=== PATIENT | female | born 1970 | race American Indian/Alaskan Native ===

== ENCOUNTER 2016-03-29 09:12 | Emergency (ER) | payer BC, OTHER ==
[2016-03-29] MEDS ORDERED: ZOFRAN ONE (10:47)
[2016-03-29] MEDS ORDERED: MORPHINE IV ONE ×2 (11:05→14:18)
[2016-03-29] MEDS ORDERED: ZOFRAN IV ONE (11:05)
[2016-03-29 11:14] LABS: Basophils % (Auto) 0.6 % (0.0-1.8); Eosinophils % (Auto) 1.9 % (0.0-4.3); Hematocrit 37.3 % (30.3-42.9); Hemoglobin 12.6 gm/dl (10.1-14.3); Mean Corpuscular HGB Conc 34 % (30-34); Mean Corpuscular Hemoglobin 29 pg (28-32); Mean Corpuscular Volume 86 fl (79-97); Platelet Count 322 K/mm3 (140-440); Red Blood Count 4.33 M/mm3 (3.65-5.03); Red Cell Distribution Width 13.5 % (13.2-15.2); White Blood Count 8.7 K/mm3 (4.5-11.0)
[2016-03-29 11:29] LABS: Blood Urea Nitrogen 7 mg/dL (7-17); Calcium 9.5 mg/dL (8.4-10.2); Carbon Dioxide 24 mmol/L (22-30); Chloride 100.5 mmol/L (98-107); Glucose 97 mg/dL (65-100); Potassium 3.9 mmol/L (3.6-5.0); Sodium 138 mmol/L (137-145)
[2016-03-29 12:07] LABS: Anion Gap 17 mmol/L
[2016-03-29] MEDS ORDERED: NACL ONE (12:07)
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
[2016-03-29 14:28] LABS: Bacteria,Urine 1+ /HPF (Negative); Bilirubin,Urine NEG (Negative); Blood,Urine NEG (Negative); Ketones,Urine NEG (Negative); Leukocyte Esterase,Urine MOD (Negative); Nitrite,Urine NEG (Negative); Protein,Urine <15 mg/dL mg/dL (Negative); RBC,Urine < 1.0 /HPF (0.0-6.0); Urobilinogen,Urine < 2.0 mg/dL (<2.0)
[2016-03-29 15:35] VITALS: BP 128/79
== END 2016-03-29 15:34 | disposition home or self-care (01) ==
LOC: ED 09:12
DX: R10.30 Lower abdominal pain, unspecified (principal); I10 Essential (primary) hypertension; G89.29 Other chronic pain; Z90.710 Acquired absence of both cervix and uterus; V89.2XXA Person injured in unspecified motor-vehicle accident, traffic, initial encounter; Y93.89 Activity, other specified; Y92.89 Other specified places as the place of occurrence of the external cause; Y99.8 Other external cause status
CPT/HCPCS: 36415; 70450; 72125; 74177; 80048; 81001; 85025; 86850; 86900; 86901; 96374; 96375; 96376; 99284; J2270; J2405; Q9967